=== PATIENT | female | born 1970 | race African-American/Black ===

== ENCOUNTER 2019-11-29 12:03 | Outpatient (CLI) | payer MEDICARE ==
--- NOTE | 2019-11-29 12:38 | MMO ---
Bilateral MAMMO Bilat Screen [facility]. CLINICAL HISTORY: Patient is 49 years old and is seen for screening. The patient has no family history of breast cancer. The patient has no personal history of cancer. VIEWS: The views performed were: bilateral craniocaudal with tomosynthesis and bilateral mediolateral oblique with tomosynthesis. This study has been interpreted with the assistance of computer-aided detection. MAMMOGRAM FINDINGS: There are scattered fibroglandular densities. Benign calcifications are noted bilaterally. There are no suspicious masses, suspicious calcifications, or new areas of architectural distortion. IMPRESSION: THERE IS NO MAMMOGRAPHIC EVIDENCE OF MALIGNANCY. A ROUTINE FOLLOW-UP MAMMOGRAM IN 1 YEAR IS RECOMMENDED. THE RESULTS OF THIS EXAM WERE SENT TO THE PATIENT. ACR BI-RADS Category 2 - Benign finding MAMMOGRAPHY NOTE: 1. A negative mammogram report should not delay a biopsy if a dominant of clinically suspicious mass is present. 2. Approximately 10% to 15% of breast cancers are not detected by mammography. 3. Adenosis and dense breasts may obscure an underlying neoplasm. Reported by: DAVID BABB MD Electonically Signed: [id number]
--- NOTE | 2019-11-29 13:08 | RAD ---
Chest 2 views HISTORY: Cough. Tobacco abuse. COMPARISON: 11/26/2007. FINDINGS: Cardiac silhouette and pulmonary vasculature are unremarkable. Mediastinum is midline. No confluent airspace consolidation, pneumothorax, or pleural fluid. IMPRESSION : No active cardiopulmonary abnormalities are demonstrated.
--- NOTE | 2019-11-29 14:10 | ULT ---
TRANSABDOMINAL AND TRANSVAGINAL PELVIC ULTRASOUND WITH MCELROY SCALE, COLOR FLOW AND SPECTRAL DOPPLER IM AG[facility]11/29/19 HISTORY: Menorrhagia. FINDINGS: The uterus measures 9.1 x 6.7 x 6.1 cm with a mass measuring 4.8 cm consistent with fibroid in the ri ght side of uterus. The endometrium measures 7 mm in thickness without endometrial fluid. The right ovary measures 2.4 x 1.6 x 1.4 cm and the left ovary measures 4.3 x 3 x 2.2 cm. Flow is de monstrated to both ovaries. There is a 2.1 cm cyst in the left ovary. No free fluid is seen in the cu l-de-sac. IMPRESSION: Uterine fibroid. POS: [facility]
== END 2019-11-29 12:04 | disposition home or self-care (01) ==
LOC: BICMAMMO 12:03
PROVIDERS: ATTEND Family Medicine
DX: Z12.31 Encounter for screening mammogram for malignant neoplasm of breast (principal); N92.0 Excessive and frequent menstruation with regular cycle; R10.2 Pelvic and perineal pain; D25.9 Leiomyoma of uterus, unspecified; Z72.0 Tobacco use
CPT/HCPCS: 71046; 76856; 77063; 77067

== ENCOUNTER 2024-01-12 22:01 | Emergency (ER) | payer MEDICARE | END 2024-01-12 22:53 | disposition home or self-care (01) | LOC: ERS 22:01 | DX: Z53.21 Procedure and treatment not carried out due to patient leaving prior to being seen by health care provider (principal) ==

== ENCOUNTER 2025-03-10 12:03 | Outpatient (CLI) | payer MEDICARE | END 2025-03-10 12:04 | disposition home or self-care (01) | LOC: RAD 12:03 | PROVIDERS: ATTEND Family Medicine | DX: M25.562 Pain in left knee (principal); M25.561 Pain in right knee; R06.02 Shortness of breath; M17.12 Unilateral primary osteoarthritis, left knee; M17.11 Unilateral primary osteoarthritis, right knee | CPT/HCPCS: 71046 ==